=== PATIENT | male | born 1955 | race Caucasian/White ===

== ENCOUNTER 2022-07-13 06:00 | Day surgery (SDC) | payer OTHER, MEDICAID ==
[~2022-07-13] VITALS: Ht 160 cm; Wt 81.4 kg
[2022-07-13] MEDS ORDERED: SIMETHICONE 40 MG/0.6 ML ML ONE (07:45)
[2022-07-13] MEDS ORDERED: MEPERIDINE 50 MG/ML VIAL ONE (07:46)
[2022-07-13] MEDS ORDERED: MIDAZOLAM HCL 5 MG/5 ML VIAL ONE ×2 (07:46→10:15)
[2022-07-13] MEDS ORDERED: fentaNYL CITRATE/PF 100 MCG/2 ML AMP ONE ×2 (08:33→10:15)
[2022-07-13] MEDS ORDERED: BENZOCAINE 20% 0.5mL UD SPRAY MM ONE (09:58)
[2022-07-13] MEDS ORDERED: ONDANSETRON HCL 4 MG/2 ML VIAL ONE (10:22)
[2022-07-13 12:07] VITALS: BP_SYST 115
== END 2022-07-13 11:40 | disposition home or self-care (01) ==
LOC: SDS 06:00 → SMU 06:00 → SDS 11:40
PROVIDERS: ATTEND Internal Medicine
DX: R19.4 Change in bowel habit (principal); K63.5 Polyp of colon; K57.30 Diverticulosis of large intestine without perforation or abscess without bleeding; K64.8 Other hemorrhoids; K29.50 Unspecified chronic gastritis without bleeding; E11.22 Type 2 diabetes mellitus with diabetic chronic kidney disease; D63.1 Anemia in chronic kidney disease; N18.6 End stage renal disease; Z99.2 Dependence on renal dialysis; K21.00 Gastro-esophageal reflux disease with esophagitis, without bleeding; K44.9 Diaphragmatic hernia without obstruction or gangrene; E78.00 Pure hypercholesterolemia, unspecified; Z79.899 Other long term (current) drug therapy
CPT/HCPCS: 45380; 45385; 43239; 82962; 88305; 88312; 88313; 99152; 99153; G0378; J2250; J2405; J3010; J2175